=== PATIENT | female | born 1975 | race Caucasian/White ===

== ENCOUNTER 2022-07-06 06:55 | Day surgery (SDC) | payer MEDICAID ==
[2022-07-03 15:07] LABS: HCG,QUAL RESULT NEGATIVE (NEGATIVE)
[~2022-07-06] VITALS: Ht 165.1 cm; Wt 97.5 kg
[2022-07-06] MEDS ORDERED: fentaNYL CITRATE/PF 100 MCG/2 ML AMP ONE (07:39)
[2022-07-06] MEDS ORDERED: MIDAZOLAM HCL 5 MG/5 ML VIAL ONE (07:40)
[2022-07-06] MEDS ORDERED: BENZOCAINE 20% 0.5mL UD SPRAY MM ONE (09:21)
[2022-07-06 13:13] VITALS: BP_SYST 132
== END 2022-07-06 11:25 | disposition home or self-care (01) ==
LOC: SDS 06:55 → SMU 06:55 → SDS 11:25
PROVIDERS: ATTEND Internal Medicine
DX: R13.10 Dysphagia, unspecified (principal); K29.50 Unspecified chronic gastritis without bleeding; K20.90 Esophagitis, unspecified without bleeding; Z20.822 Contact with and (suspected) exposure to COVID-19
CPT/HCPCS: 84703; 36415 ×2; 43239; 71045; 87426; 87081; 93005; 88305; 88312; 88313; 99152; U0003; G0378; J2250; J3010